=== PATIENT | female | born 1980 | race Caucasian/White ===

== ENCOUNTER 2016-06-04 14:29 | Emergency (ER) ==
[2016-06-04 15:02] LABS: URINE MICROSCOPIC NEEDED? NO; URINE SOURCE CLEAN CATCH
[2016-06-04 15:16] LABS: BILIRUBIN URINE NEGATIVE (NEGATIVE); BLOOD URINE NEGATIVE (NEGATIVE); CLARITY CLEAR (CLEAR); COLOR YELLOW; GLUCOSE URINE NEGATIVE (NEGATIVE); LEUKOCYTES URINE NEGATIVE (NEGATIVE); NITRITE URINE NEGATIVE (NEGATIVE); PROTEIN URINE NEGATIVE (NEGATIVE); SP GRAVITY URINE 1.015; UROBILINOGEN URINE NORMAL
[2016-06-04 16:00] LABS: MANUAL DIFF NEEDED? NO
--- NOTE | 2016-06-04 16:04 | PROVIDER DOCUMENTATION ---
HPI-Female /OB/Breast - General Source: reports: patient - History of Present Illness-Female /OB Does patient report she is ?: Yes (5 weeks 3 days per u/s two days ago) Location of complaint: reports: other (mid back) Radiation: reports: other (lower abdomen) Quality of Pain: reports: dull Severity in ED: reports: mild Onset/Duration: reports: gradual, this morning Timing: reports: still present, constant Context/Activities at Onset: reports: none Vaginal Symptoms: reports: no symptoms Vaginal Bleeding Amount: None Related Symptoms: reports: pelvic pain, abdominal pain. denies: vaginal fluid leakage, uterine contractions, vaginal bleeding Leakage of Fluid: none Sexual intercourse history: reports: Greater Than 2 Months Ago, Single Partner Contraception: reports: none Modifying Factors: improves with: nothing Associated Symptoms: reports: back/neck pain. denies: diarrhea, dizziness, fever/chills, nausea, seizure Similar Symptoms Previously?: No Recently seen or treated by another doctor?: Yes - LMP/ History Menstrual Status: currently : 3 Para: 2 : 0 Prior Delivery: HCG confirmation: clinic - blood Care: OB doctor Weeks/Months: 5 Age estimated by:: ultrasound Prior Sonogram date: 06/02/16 Prior sonogram results: IUP present CURRENT Problems: none <Buck Walter - Last Filed: 06/04/16 15:58> <Mitzi Hernandez - Last Filed: 06/04/16 17:00> - General Chief Complaint: Female Stated Complaint: 11WKS PREG/BACK PAIN Time Seen by Provider: 06/04/16 15:51 Allergies/Adverse Reactions: Patient Allergies Allergy/AdvReac Type Severity Reaction Status Date / Time Penicillins Allergy ANAPHYLAXIS Verified 05/05/15 21:11 Home Medications: Home Medication List Medication Instructions Recorded Confirmed Last Taken Type Acetaminophen/Diphenhydramine 1 each PO Q6-8H PRN PRN #30 tablet 06/04/16 Unknown Rx [Percogesic 325-12.5 mg Tablet] Metformin [Glucophage] 500 mg PO BID 06/04/16 06/04/16 Unknown History - History of Present Illness-Female /OB Nature of Presenting Problem: patient is a 35 y/o F that is a G 3 P 2 AB 0, that presents with lower back pain that radiates to lower abdominal. She had u/s x 2 days ago that was nml and showed 11week IUP. Patient denies any vaginal bleeding or vaginal discharge , no hematuria. was told to come to the ER by her [employer] office. (Buck Walter ) Review of Systems - Adult - REVIEW OF SYSTEMS - ADULT Constitutional: denies: chills, fever Eyes: reports: no symptoms reported Ears, Nose, Mouth & Throat: reports: no symptoms reported Cardiovascular: denies: chest pain, palpitations, syncope Respiratory: denies: cough, shortness of breath, wheezing Gastrointestinal: reports: abdominal pain. denies: diarrhea, nausea, vomiting Genitourinary: denies: dysuria, frequency, flank pain, hematuria Musculoskeletal: reports: back pain. denies: joint pain, neck pain Integumentary: reports: no symptoms reported Neurological: denies: dizziness/vertigo, seizure, syncope Psychiatric: reports: no symptoms reported Endocrine: reports: no symptoms reported Hematologic/Lymphatic: reports: no symptoms reported Allergic/Immunologic: reports: no symptoms reported All Other Systems: Reviewed and Negative <Buck Walter - Last Filed: 06/04/16 15:58> Past History - Adult - PAST MEDICAL HISTORY-ADULT Review of Records: reports: Old Records Reviewed, Nursing Assessment Review, Medications Reviewed Cardiovascular: reports: HTN Endocrine/Immune: reports: Diabetes Other Conditions: reports: other (morbid obesity) - PRIOR SURGERIES/PROCEDURES Surgical/Procedure History: reports: , hernia repair - IMMUNIZATION STATUS Childhood Immunizations: See Nurse Assessment Flu Vaccine: See Nurse Assessment - FAMILY HISTORY Family History: reviewed, not pertinent - SOCIAL HISTORY Smoking: cigarettes, less than 1 pack/day Living Situation: family <Buck Walter - Last Filed: 06/04/16 15:58> Physical Exam-General - PHYSICAL EXAM-ADULT Initial Vital Signs Reviewed: Yes - CONSTITUTIONAL General Appearance: alert, no apparent distress - EYES Eyes: PERRL/EOMI, pink conjunctivae - HEAD, EARS, NOSE, MOUTH & THROAT HENMT: normocephalic/atraumatic, moist mucous membranes, normal ENT inspection - NECK Neck: non-tender, full range of motion, normal inspection - RESPIRATORY Respiratory: lungs clear, normal breath sounds, no respiratory distress, no accessory muscle use - CARDIOVASCULAR Cardiovascular: regular rate, rhythm, no edema, no murmur - GASTROINTESTINAL (ABDOMEN) Abdominal Exam: normal bowel sounds, non tender, soft, no organomegaly, no pulsatile mass - MUSCULOSKELETAL Back Exam: vertebral tenderness (mid lower back). negative: ecchymosis, kyphosis, lordosis Extremity: normal range of motion, non-tender, normal inspection, no pedal edema - SKIN Integumentary: normal color, warm/dry - NEUROLOGIC Neurologic: grossly normal, no motor/sensory deficits - PSYCHIATRIC Psych/Mental Status: normal mood/affect, normal thought content, normal thought process, oriented x 3 <Buck Walter - Last Filed: 06/04/16 15:58> Progress <Buck Walter - Last Filed: 06/04/16 15:58> <Mitzi Hernandez - Last Filed: 06/04/16 17:00> - PLAN OF CARE/RESULTS Progress/Plan/Lab Results: Vital Signs Temp Pulse Resp BP Pulse Ox 06/04/16 14:52 98 F 87 18 170/73 100 Penicillins Allergy (Verified 05/05/15 21:11) ANAPHYLAXIS Metformin [Glucophage] 500 mg PO BID 06/04/16 Laboratory 06/04/16 06/04/16 06/04/16 15:58 15:58 15:58 WBC 9.26 RBC 4.46 Hgb 12.9 Hct 38.3 MCV 85.9 MCH 28.9 MCHC 33.7 RDW Std Deviation 13.8 Plt Count 135 MPV 12.2 H Immature Gran % (Auto) 0.2 Neut % (Auto) 60.1 Lymph % (Auto) 32.0 [place] % (Auto) 5.6 Eos % (Auto) 1.9 Baso % (Auto) 0.2 Immature Gran # (Auto) 0.02 Neut # (Auto) 5.56 Lymph # (Auto) 2.96 [place] # (Auto) 0.52 Eos # (Auto) 0.18 Baso # (Auto) 0.02 Sodium 136 Potassium 3.6 Chloride 102 Carbon Dioxide 23 L Anion Gap 11 BUN 10 Creatinine 0.4 L Estimated GFR/1.73 m2 > 60 BUN/Creatinine Ratio 25 Glucose 106 H Calculated Osmolality 271 Calcium 9.6 Total Bilirubin 0.30 AST 12 ALT 14 Alkaline Phosphatase 78 Total Protein 6.7 Albumin 3.9 Globulin 3.0 Albumin/Globulin Ratio 1.0 Ser , Semi-Qnt Urine Source Urine Color Urine Clarity Urine pH Ur Specific Trout Urine Protein Urine Ketones Urine Blood Urine Nitrite Urine Bilirubin Urine Urobilinogen Urine WBC Urine Glucose ABO/Rh O POSITIVE RhIG Candidate? NO 06/04/16 06/04/16 15:58 14:38 WBC RBC Hgb Hct MCV MCH MCHC RDW Std Deviation Plt Count MPV Immature Gran % (Auto) Neut % (Auto) Lymph % (Auto) [place] % (Auto) Eos % (Auto) Baso % (Auto) Immature Gran # (Auto) Neut # (Auto) Lymph # (Auto) [place] # (Auto) Eos # (Auto) Baso # (Auto) Sodium Potassium Chloride Carbon Dioxide Anion Gap BUN Creatinine Estimated GFR/1.73 m2 BUN/Creatinine Ratio Glucose Calculated Osmolality Calcium Total Bilirubin AST ALT Alkaline Phosphatase Total Protein Albumin Globulin Albumin/Globulin Ratio Ser , Semi-Qnt 45513.0 Urine Source CLEAN CATCH Urine Color YELLOW Urine Clarity CLEAR Urine pH 6.0 Ur Specific [place]out 1.015 Urine Protein NEGATIVE Urine Ketones NEGATIVE Urine Blood NEGATIVE Urine Nitrite NEGATIVE Urine Bilirubin NEGATIVE Urine Urobilinogen NORMAL Urine WBC NEGATIVE Urine Glucose NEGATIVE ABO/Rh RhIG Candidate? Orders Category Date Time Status CBC WITH ELECTRONIC DIFF [HEME] Stat Lab 06/04/16 15:58 Completed CMP [COMPREHENSIVE METABOLIC PANEL] [CHEM] Stat Lab 06/04/16 15:58 Completed QUANT TEST Stat Lab 06/04/16 15:58 Completed RHOGAM WORKUP [BBK] Stat Lab 06/04/16 15:[address] [URINALYSIS] Stat Lab 06/04/16 14:38 Completed (Mitzi Hernandez) Departure <Buck Walter - Last Filed: 06/04/16 15:58> - Departure Time of Disposition Order: 16:59 Certified Medical Emergency: Emergent <Mitzi Hernandez - Last Filed: 06/04/16 17:00> - Departure DIAGNOSIS: Back pain affecting Disposition: HOME 01 Condition: Stable Additional Instructions: Follow up with your staff technologist ED Follow Up Instructions: You have been treated by a care provider in the Emergency Department. These instructions are being provided to you so you can have an understanding of how to care for yourself upon discharge. Upon discharge from the Emergency Department, you are responsible for making arrangements for follow-up care by a physician of your choice. Take all prescribed medications as directed. Return to the Emergency Department immediately for any new or worsening symptoms. You may call the Physician Referral phone number at [phone] to obtain a list of Physicians who are taking new patients. Prescriptions: Acetaminophen/Diphenhydramine [Percogesic 325-12.5 mg Tablet] 1 each PO Q6-8H PRN PRN #30 tablet PRN Reason: Pain Attestation - Scribe Verification/Attestation Scribe:: Buck Walter Acting as Scribe for:: Mitzi Hernandez Scribe documention review:: This chart was documented by a scribe and accurately reflects the service the provider performed and the decisions made by the provider. - Physician/ HUMA Attestation Patient care was provided by Advanced Practice Provider:: Yes Advanced Practice Provider:: Mitzi Hernandez Advanced Practice Provider documentation review:: The Mid-level provider documentation, treatment plan and medical decision making was reviewed by the physician who agrees with all treatment and medical decision making by the P. <Buck Walter - Last Filed: 06/04/16 15:58> Physician Attestation - Physician Attestation I, the provider, attest to the following statement:: Mitzi Hernandez Physician documentation Attestation:: This documentation recorded by the scribe accurately reflects the service I personally performed and the decisions made by me. <Buck Walter - Last Filed: 06/04/16 15:58>
[2016-06-04 16:11] LABS: BASO% 0.2 % (0.0-0.8); EOS# 0.18 X1000 (0.0-0.7); EOS% 1.9 % (0.0-10.0); HEMATOCRIT 38.3 % (37.0-47.0); HEMOGLOBIN 12.9 g/dL (12.0-16.0); IMM GRAN# 0.02 X1000 (0.0-0.04); IMM GRAN% 0.2 % (0.0-0.5); LYMPH# 2.96 X1000 (1.2-3.4); MCH 28.9 PG (27-31); MCHC 33.7 g/dL (33-37); MCV 85.9 FL (81-99); MONO# 0.52 X1000 (0.11-0.59); MONO% 5.6 % (1.7-9.3); MPV 12.2 FL (7.4-10.4); NEUT% 60.1 % (42.2-75.2); PLT 135 X1000 (130-400); RBC 4.46 XMIL (4.2-5.4)
[2016-06-04 16:17] LABS: AGAP 11; ALBUMIN 3.9 g/dL (3.5-5.0); ALKALINE PHOSPHATASE 78 U/L (32-104); BUN 10 mg/dL (8-22); CALCIUM 9.6 mg/dL (8.8-10.2); CHLORIDE 102 mmol/L (98-107); COSMO 271; GOT 12 U/L (10-30); GPT 14 U/L (10-36); POTASSIUM 3.6 mmol/L (3.5-5.1); SODIUM 136 mmol/L (136-145); TCO2 23 mmol/L (25-35); TOTAL PROTEIN 6.7 g/dL (6.3-8.3)
[2016-06-04 17:21] VITALS: BP 168/71
== END 2016-06-04 17:15 | disposition home or self-care (01) ==
LOC: P.ED 14:29
DX: O26.891 Other specified pregnancy related conditions, first trimester (principal); M54.5 Low back pain; R10.30 Lower abdominal pain, unspecified; R10.2 Pelvic and perineal pain; O16.1 Unspecified maternal hypertension, first trimester; O99.211 Obesity complicating pregnancy, first trimester; E66.01 Morbid (severe) obesity due to excess calories; O99.331 Smoking (tobacco) complicating pregnancy, first trimester; F17.210 Nicotine dependence, cigarettes, uncomplicated; Z79.899 Other long term (current) drug therapy; Z3A.11 11 weeks gestation of pregnancy
CPT/HCPCS: 80053; 84702; 85025; 86900; 86901; 99283

== ENCOUNTER 2016-06-17 08:47 | Emergency (ER) ==
[2016-06-17 09:10] VITALS: BP 153/80
[2016-06-17 09:29] LABS: MANUAL DIFF NEEDED? NO
[2016-06-17 09:30] LABS: BASO% 0.2 % (0.0-0.8); EOS# 0.14 X1000 (0.0-0.7); EOS% 1.6 % (0.0-10.0); HEMATOCRIT 39.2 % (37.0-47.0); IMM GRAN# 0.02 X1000 (0.0-0.04); IMM GRAN% 0.2 % (0.0-0.5); LYMPH# 2.54 X1000 (1.2-3.4); LYMPH% 28.2 % (20.5-51.1); MCH 28.8 PG (27-31); MCHC 33.2 g/dL (33-37); MCV 86.7 FL (81-99); MONO# 0.39 X1000 (0.11-0.59); MONO% 4.3 % (1.7-9.3); MPV 12.4 FL (7.4-10.4); NEUT% 65.5 % (42.2-75.2); PLT 139 X1000 (130-400); RBC 4.52 XMIL (4.2-5.4)
--- NOTE | 2016-06-17 10:36 | PROVIDER DOCUMENTATION ---
HPI-Female /OB/Breast - General Source: reports: patient - History of Present Illness-Female /OB Does patient report she is ?: Yes Location of complaint: reports: generalized flank Quality of Pain: reports: aching Severity in ED: reports: moderate Onset/Duration: reports: 4 days ago Timing: reports: still present Vaginal Symptoms: reports: abnormal bleeding Vaginal Bleeding Amount: Small/Light Similar Symptoms Previously?: No Recently seen or treated by another doctor?: No <Tae Barajas - Last Filed: 06/17/16 11:47> <Melissa Castellano - Last Filed: 06/17/16 12:41> - General Chief Complaint: Female Stated Complaint: 13 WEEKS PREG/BLEEDING Time Seen by Provider: 06/17/16 10:00 Allergies/Adverse Reactions: Patient Allergies Allergy/AdvReac Type Severity Reaction Status Date / Time metformin Allergy DIARRHEA Verified 06/17/16 09:10 Penicillins Allergy ANAPHYLAXIS Verified 06/17/16 09:10 Home Medications: Home Medication List Medication Instructions Recorded Confirmed Last Taken Type Insulin Detemir [Levemir] 25 mg SQ HS 06/17/16 06/17/16 Unknown History Insulin Lispro [Humalog] 10 units SQ AC 06/17/16 06/17/16 Unknown History - History of Present Illness-Female /OB Nature of Presenting Problem: Pt is a 13 wk OB with cc of vaginal bleeding x 4 days with abd cramping. Reports went to OB this am for first time and was sent to ER.NO prior OB care. Sandi massey,dinah,doug. (Tae Barajas) Review of Systems - Adult - REVIEW OF SYSTEMS - ADULT Constitutional: denies: chills, fever, fatique Eyes: reports: no symptoms reported Ears, Nose, Mouth & Throat: denies: ear pain, sinus problem, throat pain Cardiovascular: reports: no symptoms reported Respiratory: denies: dyspnea on exertion, shortness of breath, wheezing Gastrointestinal: reports: abdominal pain. denies: difficulty swallowing, frequent heartburn Genitourinary: reports: see HPI. denies: dysuria, frequent UTI's, hematuria, urgency Musculoskeletal: reports: no symptoms reported Integumentary: reports: no symptoms reported Neurological: reports: no symptoms reported Psychiatric: reports: no symptoms reported Endocrine: reports: no symptoms reported Hematologic/Lymphatic: reports: no symptoms reported Allergic/Immunologic: reports: no symptoms reported All Other Systems: Reviewed and Negative <Tae Barajas - Last Filed: 06/17/16 11:47> Past History - Adult - PAST MEDICAL HISTORY-ADULT Review of Records: reports: Nursing Assessment Review, Medications Reviewed Major Childhood Illnesses: reports: denies history Cardiovascular: reports: HTN Endocrine/Immune: reports: Diabetes Other Conditions: reports: other (morbid obesity) - PRIOR SURGERIES/PROCEDURES Surgical/Procedure History: reports: , hernia repair - IMMUNIZATION STATUS Childhood Immunizations: See Nurse Assessment Flu Vaccine: See Nurse Assessment - FAMILY HISTORY Family History: reviewed, not pertinent - SOCIAL HISTORY Smoking: cigarettes, less than 1 pack/day Provider spent 3-5 mins advising pt. on dangers of tobacco.: Discussed manners to quit use, and f/u contacts for add'l counseling. Substance Use: none/never <Tae Barajas - Last Filed: 06/17/16 11:47> Physical Exam-General - PHYSICAL EXAM-ADULT Initial Vital Signs Reviewed: Yes - CONSTITUTIONAL General Appearance: appears well, alert, no apparent distress - EYES Eyes: PERRL/EOMI - HEAD, EARS, NOSE, MOUTH & THROAT HENMT: moist mucous membranes, normal ENT inspection, TMs normal, pharynx normal - RESPIRATORY Respiratory: chest non-tender, lungs clear, normal breath sounds, no pleuratic chest pain, no respiratory distress, no accessory muscle use - CARDIOVASCULAR Cardiovascular: regular rate, rhythm, no edema, no gallop, no JVD, no murmur - GASTROINTESTINAL (ABDOMEN) Abdominal Exam: normal bowel sounds, non tender, soft, no organomegaly, no pulsatile mass - MUSCULOSKELETAL Back Exam: normal inspection, no CVA tenderness, no vertebral tenderness Extremity: normal range of motion, non-tender - SKIN Integumentary: normal color, normal turgor, warm/dry - PSYCHIATRIC Psych/Mental Status: normal mood/affect, normal thought content, normal thought process, oriented x 3 <Tae Barajas - Last Filed: 06/17/16 11:47> Progress - ULTRASOUND (By Radiology) 1 US Study: Abdomen Impression: Abnormal (limited somewhat due to body habitus. viable IUP seen. HR 160 GA 12w2d. no gross anomalies cervix is closed. the ovaries could not be visualized.) <Tae Barajas - Last Filed: 06/17/16 11:47> <NonaMelissa Jarvis - Last Filed: 06/17/16 12:41> - PLAN OF CARE/RESULTS Progress/Plan/Lab Results: Orders Category Date Time Status US OBS COMPLETE < 14 WKS [US] Stat Exams 06/17/16 10:22 Ordered CBC WITH DIFF [HEME] Stat Lab 06/17/16 09:23 Completed QUANT TEST Stat Lab 06/17/16 09:23 Completed RHOGAM WORKUP [BBK] Stat Lab 06/17/16 09:23 Completed Vital Signs - 24 hr 06/17/16 09:07 Pulse Rate 89 Respiratory 20 Rate Blood Pressure 153/80 O2 Sat by Pulse 99 Oximetry Laboratory Tests 06/17/16 06/17/16 06/17/16 09:23 09:23 09:23 WBC 9.02 RBC 4.52 Hgb 13.0 Hct 39.2 MCV 86.7 MCH 28.8 MCHC 33.2 RDW Std Deviation 14.0 Plt Count 139 MPV 12.4 H Immature Gran % (Auto) 0.2 Neut % (Auto) 65.5 Lymph % (Auto) 28.2 [place] % (Auto) 4.3 Eos % (Auto) 1.6 Baso % (Auto) 0.2 Immature Gran # (Auto) 0.02 Neut # (Auto) 5.91 Lymph # (Auto) 2.54 [place] # (Auto) 0.39 Eos # (Auto) 0.14 Baso # (Auto) 0.02 Ser , Semi-Qnt 10282.0 ABO/Rh O POSITIVE RhIG Candidate? NO (Tae Barajas) Departure <Tae Barajas - Last Filed: 06/17/16 11:47> - Departure Time of Disposition Order: 12:39 Certified Medical Emergency: Emergent <Melissa Castellano - Last Filed: 06/17/16 12:41> - Departure DIAGNOSIS: Vaginal bleeding Normal IUP (intrauterine ) on ultrasound Qualifiers: Trimester: first trimester Qualified Code(s): Z34.91 - Encounter for supervision of normal , unspecified, first trimester Disposition: HOME 01 Condition: Stable Additional Instructions: Keep appointment with OB next week Will need blood-work for Quant HCG ED Follow Up Instructions: You have been treated by a care provider in the Emergency Department. These instructions are being provided to you so you can have an understanding of how to care for yourself upon discharge. Upon discharge from the Emergency Department, you are responsible for making arrangements for follow-up care by a physician of your choice. Take all prescribed medications as directed. Return to the Emergency Department immediately for any new or worsening symptoms. You may call the Physician Referral phone number at [phone] to obtain a list of Physicians who are taking new patients. Referrals: Joe Willard MD [Primary Care Provider] - Attestation - Scribe Verification/Attestation Scribe:: Tae Barajas Acting as Scribe for:: Melissa Castellano Scribe documention review:: This chart was documented by a scribe and accurately reflects the service the provider performed and the decisions made by the provider. <Tae Barajas - Last Filed: 06/17/16 11:47> Physician Attestation
[2016-06-17 12:07] LABS: URINE SOURCE CLEAN CATCH
--- NOTE | 2016-06-17 12:22 | Diag Imaging Result Document ---
PROCEDURE NAME: US OBS COMPLETE < 14 WKS - 06/17/2016 OBSTETRIC ULTRASOUND: COMPARISON: None available. FINDINGS: Note that this study is limited due to poor tolerance by the patient and the patient's body habitus. A viable intrauterine gestation is identified. No gross anomalies can be identified given the limitations of this study. motion was identified. The measured heart rate was 160 beats per minute. The gestational age by ultrasound is 12 weeks 2 days +/-7 days. The cervix was closed. Neither the right nor the left ovary could be visualized. No definite adnexal masses were identified. No definite free fluid was identified. IMPRESSION: 1. Somewhat limited study due to body habitus. 2. Single viable intrauterine gestation with no gross anomalies appreciated. 3. Nonvisualization of the ovaries.
[2016-06-17 12:31] LABS: BILIRUBIN URINE NEGATIVE (NEGATIVE); BLOOD URINE 3+ (NEGATIVE); CLARITY CLEAR (CLEAR); COLOR YELLOW; GLUCOSE URINE NEGATIVE (NEGATIVE); LEUKOCYTES URINE TRACE (NEGATIVE); NITRITE URINE NEGATIVE (NEGATIVE); PROTEIN URINE TRACE mg/dL (NEGATIVE); SP GRAVITY URINE 1.015; URINE MICROSCOPIC NEEDED? YES; UROBILINOGEN URINE NORMAL
[2016-06-17 12:33] LABS: URINE EPITHELIAL CELLS >10 /HPF (<10); URINE WBC <10 /HPF (<10)
== END 2016-06-17 13:07 | disposition home or self-care (01) ==
LOC: P.ED 08:47
DX: O46.91 Antepartum hemorrhage, unspecified, first trimester (principal); O26.892 Other specified pregnancy related conditions, second trimester; R10.9 Unspecified abdominal pain; O16.1 Unspecified maternal hypertension, first trimester; O24.911 Unspecified diabetes mellitus in pregnancy, first trimester; O99.211 Obesity complicating pregnancy, first trimester; E66.9 Obesity, unspecified; O99.331 Smoking (tobacco) complicating pregnancy, first trimester; F17.210 Nicotine dependence, cigarettes, uncomplicated; Z3A.12 12 weeks gestation of pregnancy
CPT/HCPCS: 36415; 76801; 81001; 81025; 84702; 85025; 86900; 86901

== ENCOUNTER 2016-12-13 16:49 | Inpatient (IN) ==
[2016-12-13 15:59] LABS: HEMATOCRIT 34.2 % (37.0-47.0); HEMOGLOBIN 11.3 g/dL (12.0-16.0); MCH 29.1 PG (27-31); MCV 88.1 FL (81-99); PLT 129 X1000 (130-400); RBC 3.88 XMIL (4.2-5.4)
[2016-12-13 17:40] LABS: MANUAL DIFF NEEDED? NO
[2016-12-13 17:41] LABS: BASO% 0.3 % (0.0-0.8); EOS# 0.15 X1000 (0.0-0.7); EOS% 1.3 % (0.0-10.0); HEMATOCRIT 34.8 % (37.0-47.0); HEMOGLOBIN 11.3 g/dL (12.0-16.0); IMM GRAN# 0.04 X1000 (0.0-0.04); IMM GRAN% 0.4 % (0.0-0.5); LYMPH# 2.49 X1000 (1.2-3.4); LYMPH% 22.3 % (20.5-51.1); MCH 29.2 PG (27-31); MCHC 32.5 g/dL (33-37); MCV 89.9 FL (81-99); MONO# 0.72 X1000 (0.11-0.59); MONO% 6.4 % (1.7-9.3); MPV 13.2 FL (7.4-10.4); NEUT% 69.3 % (42.2-75.2); PLT 127 X1000 (130-400); RBC 3.87 XMIL (4.2-5.4)
[2016-12-13 17:45] LABS: URINE SOURCE VOIDED
[2016-12-13 17:48] LABS: BILIRUBIN URINE NEGATIVE (NEGATIVE); BLOOD URINE NEGATIVE (NEGATIVE); CLARITY SL. CLOUDY (CLEAR); COLOR YELLOW; LEUKOCYTES URINE TRACE (NEGATIVE); NITRITE URINE NEGATIVE (NEGATIVE); PH URINE 6.5; PROTEIN URINE TRACE mg/dL (NEGATIVE); UROBILINOGEN URINE NORMAL
[2016-12-13] MEDS ORDERED: LR 1,000 ML IV SCH (19:26)
[2016-12-13 19:51] LABS: UR AMPHETAMINES QUAL NONE DETECTED (NONE DETECT); UR BARBITUATES QUAL NONE DETECTED (NONE DETECT); UR BENZODIAZEPIN QUAL NONE DETECTED (NONE DETECT); UR CANNABINOIDS QUAL NONE DETECTED (NONE DETECT); UR COCAINE QUAL NONE DETECTED (NONE DETECT); UR MDMA QUAL NONE DETECTED (NONE DETECT); UR METHADONE QUAL NONE DETECTED (NONE DETECT); UR METHAMPHETAMINE QUAL NONE DETECTED (NONE DETECT); UR OPIATES QUAL NONE DETECTED (NONE DETECT); UR OXYCODONE QUAL NONE DETECTED (NONE DETECT); UR PCP QUAL NONE DETECTED (NONE DETECT); UR TCA QUAL NONE DETECTED (NONE DETECT)
[2016-12-13 20:03] LABS: BASO% 0.4 % (0.0-0.8); EOS# 0.15 X1000 (0.0-0.7); EOS% 1.4 % (0.0-10.0); HEMATOCRIT 34.3 % (37.0-47.0); HEMOGLOBIN 11.3 g/dL (12.0-16.0); IMM GRAN# 0.04 X1000 (0.0-0.04); IMM GRAN% 0.4 % (0.0-0.5); LYMPH% 22.2 % (20.5-51.1); MANUAL DIFF NEEDED? NO; MCH 29.5 PG (27-31); MCHC 32.9 g/dL (33-37); MCV 89.6 FL (81-99); MONO# 0.63 X1000 (0.11-0.59); MONO% 5.8 % (1.7-9.3); NEUT% 69.8 % (42.2-75.2); PLT 121 X1000 (130-400); RBC 3.83 XMIL (4.2-5.4)
[2016-12-13] MEDS ORDERED: LEVEMIR INSULIN *HA SUBQ SCH (22:00)
[2016-12-13] MEDS: TRANDATE PO SCH (22:53)
[2016-12-14] MEDS: LEVEMIR INSULIN *HA SUBQ SCH ×2 (03:10→20:40)
[2016-12-14] MEDS ORDERED: SODIUM CHLORIDE 0.9% INJ ONE (05:52)
[2016-12-14] MEDS ORDERED: BICITRA PO ONE (06:00)
[2016-12-14] MEDS ORDERED: PEPCID IV ONE (06:00)
[2016-12-14] MEDS ORDERED: CLINDAMYCIN 900 MG/NS 900 MG/50 ML IVPB IV ONE (06:00)
[2016-12-14] MEDS ORDERED: NS 1,000 ML IV SCH (06:14)
[2016-12-14] MEDS ORDERED: NS 2,000 ML ONE (06:21)
[2016-12-14] MEDS ORDERED: NEO-SYNEPHRINE ONE (06:31)
[2016-12-14] MEDS ORDERED: ZOFRAN ONE ×2 (06:31→07:38)
[2016-12-14] MEDS ORDERED: TORADOL ONE (06:31)
[2016-12-14] MEDS ORDERED: PITOCIN ONE (06:31)
[2016-12-14] MEDS ORDERED: DURAMORPH ONE (06:39)
[2016-12-14] MEDS ORDERED: XYLOCAINE-MPF 2% ONE (07:04)
[2016-12-14] MEDS ORDERED: SODIUM CHLORIDE 0.9% 10 ML ONE (07:04)
[2016-12-14] MEDS ORDERED: HYDROXYZINE IM PRN (08:08)
[2016-12-14] MEDS ORDERED: HYDROXYZINE PO PRN (08:08)
[2016-12-14] MEDS ORDERED: MYLICON PO PRN (08:08)
[2016-12-14] MEDS ORDERED: DULCOLAX PR PRN (08:08)
[2016-12-14] MEDS ORDERED: DEMEROL IM PRN (08:08)
[2016-12-14] MEDS ORDERED: PERCOCET-5 PO PRN (08:08)
[2016-12-14] MEDS ORDERED: AMBIEN PO PRN (08:08)
[2016-12-14] MEDS ORDERED: PITOCIN IM PRN (08:08)
[2016-12-14] MEDS ORDERED: M-M-R II VACCINE SUBQ ONE (08:08)
[2016-12-14] MEDS ORDERED: DEMEROL PO PRN ×2 (08:08)
[2016-12-14] MEDS ORDERED: PHENERGAN IM PRN (08:08)
[2016-12-14] MEDS ORDERED: PITOCIN 20 UNITS/LR 20 UNITS/1,000 ML IV.SOLN IV ONE (08:08)
[2016-12-14] MEDS ORDERED: BOOSTRIX VACCINE IM ONE (08:08)
[2016-12-14] MEDS ORDERED: CYTOTEC PO PRN (08:08)
--- NOTE | 2016-12-14 08:13 | HISTORY AND PHYSICAL ---
HISTORY OF PRESENT ILLNESS: The patient is a 36-year-old female 3, para 2-0-0-2 who comes at this time at 38 weeks . She has chronic hypertension, diabetes, previous x2, and morbid obesity, and is admitted at this time for a repeat and tubal ligation. She has been followed by M, has been on metformin, labetalol. They advised 38-week delivery, and therefore, she is admitted at this time. She also desires tubal ligation. She understands this tubal is permanent with a 1 in 200 failure rate. Risks of the surgery are explained, especially in light of her morbid obesity. PAST MEDICAL HISTORY: Diabetes, hypertension, previous x.2. MEDICINES: Labetalol 200 mg t.i.d., metformin 500 b.i.d.. ALLERGIES: Penicillin, latex. PHYSICAL EXAMINATION: GENERAL: Well-developed female. HEENT: Benign. NECK: Supple. LUNGS: Clear. CARDIOVASCULAR: Regular rate and rhythm. ABDOMEN: Soft, nontender. EXTREMITIES: Without clubbing, cyanosis, or edema. ASSESSMENT AND PLAN: A 36-year-old with a term intrauterine , hypertension, diabetes, admitted at this time for a repeat and tubal ligation. Risks were explained. cc: MD Adrian Castillo MD
[2016-12-14] MEDS ORDERED: PITOCIN 10 UNITS/LR 10 UNIT/1,000 ML IV.SOLN IV SCH (08:15)
[2016-12-14] MEDS ORDERED: ZOFRAN IV PRN ×2 (08:36)
[2016-12-14] MEDS ORDERED: NARCAN INJ PRN (08:36)
[2016-12-14] MEDS ORDERED: BENADRYL IV PRN (08:36)
[2016-12-14] MEDS ORDERED: ZOFRAN ODT PO PRN (08:36)
--- NOTE | 2016-12-14 09:16 | OPERATIVE NOTE ---
PROCEDURE DATE : 12/13/2016 SURGEON: Joe Willard MD. HONEY EXTRACTOR: Escobar Ridley MD. PREOPERATIVE DIAGNOSES: 1. Term intrauterine . 2. Previous section. 3. Chronic hypertension. 4. Diabetes. 5. Multiparity, desiring permanent sterilization. POSTOPERATIVE DIAGNOSES: 1. Term intrauterine . 2. Previous section. 3. Chronic hypertension. 4. Diabetes. 5. Multiparity, desiring permanent sterilization. PROCEDURE: 1. Repeat low transverse section. 2. Bilateral tubal ligation. ANESTHESIA: Spinal. FINDINGS: The patient had a female infant born, weight and Apgars not available. Did have 1 nuchal cord. DESCRIPTION OF OPERATION: The patient was taken to the operating room and given Ancef IV. She was given spinal anesthesia by Dr. Mcbride and prepped and draped in sterile fashion, Dozier catheter in bladder, pump hose and stockings were placed. Her abdomen was taped up, and we made a vertical skin incision in her previous incision site, dissected down until what we could determine at best appeared to be the fascia. It was very difficult to delineate. She had omental adhesions that were at this area. We were able to move through this and finally get down to the uterus to visualize it. We made a low transverse incision. Clear fluid was noted upon entering the amniotic sac. We made this incision high above the bladder flap, and clear fluid was noted. The infant was delivered using fundal pressure. Cord blood was obtained. Placenta was removed. Uterus was externalized and cleaned with a clean lap. Incision was closed with #1 chromic in a locking fashion. She had a hematoma on the right side on the broad ligament that was controlled using a #1 chromic suture. All pedicles were reinspected and noted to be hemostatic. The fimbria on each side were then picked up and doubly ligated with 0 plain suture, cut, and sent to Pathology for identification. We also put Kellys on the tubes serially and cauterized these areas for tubal ligation control, too. At this time, we put the uterus back in the anatomic position, inspected it as best we could, which was difficult secondary to the patient's morbid obesity. We closed the incision with a 0 PDS and then put several layers of 3-0 Vicryl subcuticularly and closed the incision with sarah. Estimated blood loss was 500 mL. Sponge and instrument count correct. cc: MD Adrian Castillo MD
[2016-12-14] MEDS: ADALAT CC PO SCH (09:23)
[2016-12-14] MEDS: TRANDATE PO SCH ×2 (09:23→20:14)
[2016-12-14] MEDS: OFIRMEV 1000 MG/ISOTONIC SOLN 1,000 MG/100 ML BOTTLE IV PRN ×2 (09:26→20:03)
[2016-12-14] MEDS: MORPHINE IV PRN ×5 (10:06→23:03)
[2016-12-14] MEDS: MYLICON PO SCH ×4 (11:49→20:14)
[2016-12-14] MEDS: HUMALOG (PARKWAY) SUBQ SCH ×2 (11:55→18:24)
[2016-12-14] MEDS: LOVENOX SUBQ SCH (17:07)
[2016-12-14] MEDS: PERICOLACE PO SCH (20:49)
[2016-12-15] MEDS: OFIRMEV 1000 MG/ISOTONIC SOLN 1,000 MG/100 ML BOTTLE IV PRN (02:36)
[2016-12-15 05:47] LABS: HEMOGLOBIN 9.6 g/dL (12.0-16.0); MCH 28.7 PG (27-31); MCV 89.8 FL (81-99); PLT 100 X1000 (130-400); RBC 3.34 XMIL (4.2-5.4)
[2016-12-15] MEDS: HUMALOG (PARKWAY) SUBQ SCH ×3 (07:58→16:42)
[2016-12-15] MEDS ORDERED: LR 1,000 ML IV SCH (08:08)
[2016-12-15] MEDS: ADALAT CC PO SCH (08:44)
[2016-12-15] MEDS: TRANDATE PO SCH ×2 (08:44→21:01)
[2016-12-15] MEDS: MYLICON PO SCH ×4 (08:44→21:01)
[2016-12-15] MEDS: LOVENOX SUBQ SCH (08:46)
[2016-12-15] MEDS: MOTRIN PO PRN ×2 (11:46→21:01)
[2016-12-15] MEDS: PERCOCET-10 PO PRN ×3 (11:46→23:35)
[2016-12-15] MEDS: PERICOLACE PO SCH (21:01)
[2016-12-15] MEDS: LEVEMIR INSULIN *HA SUBQ SCH (22:56)
[2016-12-16] MEDS: PERCOCET-10 PO PRN ×2 (02:54→07:12)
[2016-12-16] MEDS: MOTRIN PO PRN (07:12)
[2016-12-16 07:50] VITALS: BP 161/58
--- NOTE | 2016-12-16 08:08 | DISCHARGE SUMMARY ---
ADMISSION DATE: 12/13/2016 DISCHARGE DATE: 12/16/2016 ADMITTING DIAGNOSES: 1. Term . 2. Previous section x2, for repeat section. 3. Diabetes. 4. Hypertension. 5. Morbid obesity. POSTOPERATIVE DIAGNOSES: 1. Term . 2. Previous section x2, for repeat section. 3. Diabetes. 4. Hypertension. 5. Morbid obesity. PRINCIPAL PROCEDURES: 1. Repeat section. 2. Tubal sterilization. SUMMARY: Miranda Jerome is a 36-year-old, 3, para 2, who is 38 weeks into her . She has chronic hypertension and diabetes. She has had 2 previous C-sections. She is morbidly obese. She was requesting repeat and tubal sterilization. She was admitted, and underwent a repeat low-transverse and bilateral fimbriectomy. She delivered a female infant, who weighed 6 pounds and 15 ounces. Apgars were 9 at 1 minute and 9 at 5 minutes. There were no intraoperative complications. Postoperatively, the patient has done very well. She has remained afebrile. Her vital signs have been stable, and her blood sugars have been all under 150. Today, cardiac and pulmonary examinations are normal. The incision is intact. There is a little weeping, but she is very edematous. There is no cyanosis of her extremities. However, there is some peripheral edema. We are going to send Mrs. Jerome home today. She was given prescriptions for Percocet and Motrin for pain. I am going to keep her on labetalol 200 mg twice a day. I am going to stop the Procardia. She will go back on her oral agent she was taking prior to . Will stop her insulin. She will check her blood sugars and blood pressures at home. Will see her on Tuesday to make adjustments in blood pressure medications and diabetes medications as needed. cc: MD Adrian Ortega MD
[2016-12-16] MEDS: MYLICON PO SCH (08:47)
[2016-12-16] MEDS: TRANDATE PO SCH (08:47)
[2016-12-16] MEDS: ADALAT CC PO SCH (09:36)
== END 2016-12-16 10:50 | disposition home or self-care (01) ==
LOC: P.OPLD 16:49 → P.LD 16:50 → P.WC 12-14 16:52
PROVIDERS: ADMIT Obstetrics & Gynecology; ATTEND Obstetrics & Gynecology